=== PATIENT | female | born 2005 | race African-American/Black ===

== ENCOUNTER 2025-09-10 14:06 | Emergency (ER) | payer MEDICAID, SELFPAY ==
--- NOTE | ~2025-09-10 | XR_ITS ---
CLINICAL HISTORY: fall pain 3 view right ankle Comparison: None provided Findings: No acute fractures or dislocations. No significant arthritic change or erosions. No ankle effusion. No radiopaque foreign body. IMPRESSION: 1. No acute findings. This document has been electronically signed by: Ankit Gardner MD on 09/10/2025 15:45:44
[2025-09-10 14:20] VITALS: BP 123/62; PULSE 88; RESP 16; TEMP 36.9; O2SAT 98; BMI 31.8
--- NOTE | 2025-09-10 15:49 | ED.LOWEXIN ---
HPI - Extremity Injury (Lower) General Chief Complaint: Extremity Injury, Lower Stated Complaint: Ankle injury Time Seen by Provider: 09/10/25 15:49 Source: patient, RN notes reviewed and old records reviewed Mode of arrival: ambulatory History of Present Illness ED Provider: Emerlad Sands PA-C HPI Narrative: 20-year-old female with no significant past medical history presenting to the ED complaining of right ankle pain and swelling s/p twisting ankle when missing stair last night. States was wearing pop form heels when he missed a step. Denies head trauma or LOC. Reports increasing pain with movement and ambulation. Denies injury to other area, numbness/tingling Related Data Allergies Allergy/AdvReac Type Severity Reaction Status Date / Time No Known Allergies Allergy Verified 09/10/25 14:22 Review of Systems Review of Systems: Yes all other systems are reviewed and are negative Constitutional: Constitutional: Reports as per [facility] Past Medical History Attestation statement: The following information was validated with the patient. Source: old records reviewed Physical Exam Vital Signs: Vital Signs: Last Vital Signs Temp 98.4 F 09/10/25 14:20 Pulse 88 09/10/25 14:20 Resp 16 09/10/25 14:20 BP 123/62 09/10/25 14:20 Pulse Ox 98 09/10/25 14:20 O2 Del Method Room Air 09/10/25 14:20 BMI result Body Mass Index 31.8 Const: General: cooperative, healthy appearing and no acute distress Orientation/consciousness: patient oriented x3 Limitations: no limitations HEENT: Head: Yes normal to inspection and Yes atraumatic Ears: hearing grossly normal bilaterally General nose exam: Normal external nose present Face and sinus: Yes normal facial exam Eyes: General: appearance normal, both eyes and all related structures EOM: EOMs intact bilaterally Neck: Neck: Yes normal visual inspection and Yes no meningeal signs Resp: Effort & Inspection: normal respiratory effort and no respiratory distress Cardio: Rate: regular rate Skin: Rashes: no rashes Wounds: no wounds Neuro: General: patient oriented x3, tone normal and no meningeal signs Cranial nerves: Yes CN's II-XII intact bilaterally Gait exam (Neuro): Normal gait present Extrem: Other: Right ankle lateral malleolus with appreciable swelling. Tender to palpation. Limited ROM secondary to pain. Foot and knee nontender. Neurovascularly intact. No erythema or warmth Course Course Course Narrative: -x-ray unremarkable > Aircast and crutches applied Results discussed with patient including worrisome signs and symptoms and strict return precautions, and when to return to the emergency department. They verbalized understanding and feel safe for discharge at this time. Medical Decision Making Medical Decision Making MDM Narrative: 20-year-old female with no significant past medical history presenting to the ED complaining of right ankle pain and swelling s/p twisting ankle when missing stair last night. On exam vital signs stable, NAD, nontoxic appearing, physical exam as noted above. Concern for sprain vs fracture. No evidence of septic joint/arthritis Plan: X-ray Please refer to course for remaining clinical decision making, interpretation of labs/imaging results, and discussions with consultants and/or family members. Differential Diagnosis Differential Diagnoses: The differential diagnosis associated with the presentation includes As above Independent Interpretation I performed an independent interpretation of an: Plain X-Ray (My interpretation: Appear unremarkable. No appreciable fracture) Radiology Impression Discussion of test interpretation with radiology: I have reviewed the radiologist's reading. External Record Review External record reviewed: Inpatient record, Office record, Outpatient record, Prior outpatient labs, Prior outpatient radiology, Primary care record and Outside ED record Tests considered The following testing was considered but not selected: As above Prescription Management I considered prescription management with: Pain Medication Chronic Conditions Patient?s care impacted by: Other Discharge Plan Discharge Clinical Impression: Ankle sprain and strain Patient Disposition: Home, Self-Care Instructions: Ankle Sprain (DC) Additional Instructions: You sprain her ankle Ice and elevate Use crutches as needed. Bear weight as tolerated Use Aircast as needed Follow up with your primary care doctor If her pain is unbearable, area begins to look infected return to the ED Referrals: Physician,None [Primary Care Provider, Medical] - 3 days Print Language: Armenian
--- OUTSIDE RECORDS SUMMARY | 2025-09-10 15:59 | XMS_ITS | Clinical Summary ---
Author Organization [facility] ity Address [address] [place] [address] Care Team Providers Care Major Account Manager Name Role Phone Unavailable Primary Care Provider Unavailabl e Social History Tobacco Use Types Packs/Day Years Used Date Smoking Tobacco: Never Assessed Comments Unknown Sex and Gender Information Value Date Recorded Sex Assigned at Not on file Legal Sex Female 10:29 AM EST Gender Identity Not on file Sexual Orientation Not on file Plan of Treatment Health Maintenance Due Date Last Done Comments Gonorrhea/Chlamydia Screening 2003 HPV Vaccines (1 - 3-dose series) 2018 Meningococcal B Vaccine (1 o f 2 - Standard) 2019 DTaP,Tdap,and Td Vaccines (1 - Tdap) 2022 Hepatitis B Vaccines (1 of 3 - 19+ 3-dose series) 2022 Cervical Cancer Screening: P ap Smear 2024 Depression Screening 11/10/2024 COVID-19 Vaccine (1 - 2023-2 5 season) 2025 Influenza Vaccine (#1) 2025 RSV Immunization Adult Patie nts (1 - 1-dose 75+ series) 2078 HIB Vaccines Aged Out No longer eligi ble based on patient's age to complete this topic Hepatitis A Vaccines Aged Out No long er eligible based on patient's age to complete this topic IPV Vaccines Aged Out No longer eligi ble based on patient's age to complete this topic MMR Vaccines Aged Out No longer eligi ble based on patient's age to complete this topic Meningococcal ACWY Vaccine Aged Out N o longer eligible based on patient's age to complete this topic Pneumococcal Vaccine: Pediat rics (0 to 5 Years) and At-Risk Patients (6 to 49 Years) Aged Out No longer eligible b ased on patient's age to complete this topic RSV Immunization Patients Un therese 20 months Aged Out No longer eligible b ased on patient's age to complete this topic Varicella Vaccines Aged Out No longer eligible based on patient's age to complete this topic
[2025-09-10 16:35] VITALS: BP 123/62; PULSE 88; RESP 16; TEMP 36.9; O2SAT 98
== END 2025-09-10 16:36 | disposition home or self-care (01) ==
PROVIDERS: Emergency Provider Emergency Medicine Emergency Medical Services
DX: S93.401A Sprain of unspecified ligament of right ankle, initial encounter (principal); M25.571 Pain in right ankle and joints of right foot; M25.471 Effusion, right ankle; W10.9XXA Fall (on) (from) unspecified stairs and steps, initial encounter; Z91.81 History of falling; Y93.9 Activity, unspecified; Y92.9 Unspecified place or not applicable; Y99.8 Other external cause status
CPT/HCPCS: 73610; 99283

== ENCOUNTER → 2025-09-10 14:30 | Outpatient (BNV) | payer MEDICAID, SELFPAY | PROVIDERS: Visit Provider Radiology Diagnostic Radiology | DX: M25.571 Pain in right ankle and joints of right foot (principal); W18.39XA Other fall on same level, initial encounter | CPT/HCPCS: 73610 ==